=== PATIENT | male | born 1955 | race Caucasian/White ===

== ENCOUNTER 2017-09-20 07:06 | Day surgery (SDC) | payer OTHER, SELFPAY ==
[2017-09-19 11:46] VITALS: BMI 25.4
[2017-09-20] MEDS ORDERED: Midazolam HCl 2 mg/2 ml Vial ONE (08:13)
[2017-09-20] MEDS ORDERED: PROPOFOL 60 ML ONE (08:13)
[2017-09-20] MEDS ORDERED: Fentanyl 100 MCG/2 ML VIAL ONE (08:13)
[2017-09-20 08:14] LABS: Estimated GFR-MDRD - POC Greater than 90
--- NOTE | 2017-09-20 08:48 | CT ---
CT OF NECK SOFT TISSUES WITH CONTRAST: CLINICAL HISTORY: Mass of epiglottis. COMPARISON: No prior comparison. FINDINGS: Imaged intracranial contents are free from mass effect. The salivary glands and thyroid gland are gr ossly unremarkable. There is a verrucous-shaped mass centered about the oropharynx and hypopharynx w hich does involve the epiglottis as well as the region of the lingual tonsil. There is mild asymmetr ic prominence and medial deviation of the right vocal cord with slight effacement of the glottic airw ay. There are scattered borderline-sized bilateral cervical chain lymph nodes as well as enlargement of lymph nodes within the bilateral IIA zones, measuring 1l5 cm in diameter on the right and 1.5 cm on the left. Incidental note of emphysema of the imaged upper pulmonary parenchyma. There is osseous degenerative change. There are nonspecific mildly prominent mediastinal lymph nodes. IMPRESSION: Ill-defined, irregularly shaped mass centered about the oropharynx/hypopharynx which does involve the epiglottis as well as the lingual tonsillar region. This is indicative of malignancy. Associated e nlargement of lymph nodes of the neck as well as prominent lymph nodes of the partially imaged chest noted. Metastatic adenopathy is not excluded. Consider PET CT for further assessment. POS: SHERRY
[2017-09-20] MEDS ORDERED: EPINEPHrine 1 MG/ML AMP ONE (10:15)
[2017-09-20] MEDS ORDERED: Iopamidol 370 76% 100 ML VIAL ONE (13:06)
--- NOTE | 2017-09-20 13:10 | OP ---
PREOPERATIVE DIAGNOSIS: Epiglottic lesion. 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 PROCEDURE PERFORMED: Microsuspension laryngoscopy with biopsy and rigid esophagoscopy. FINDINGS: The patient had extensive erosion of the mid portion of the epiglottis extending all the w ay down to the false cord and the esophagus inlet and proximal esophagus was clear, and the vocal cor ds appeared uninvolved. Photographs were obtained. PROCEDURE IN DETAIL: After consent was obtained, the patient was identified, brought to the operatin g room and placed on the operative table in supine position. General endotracheal anesthesia was obt ained with a small endotracheal tube and the patient was positioned for suspension laryngoscopy. Lar yngoscope was placed in the oral cavity, oropharynx, hypopharynx and larynx were systematically evalu ated. There was extensive involvement of the epiglottis with erosion of the mid portion of the entir e epiglottis with extension of the preepiglottic space. The larynx itself appeared at the level of t he true cords, false cords appeared normal, and esophageal inlet and proximal esophagus was normal __ ___ rigid esophagoscopy. The rigid esophagoscope was removed. Bleeding points from the biopsy sites were cauterized with the electrocautery and the patient was ultimately awakened, extubated, and take n to recovery room in stable condition .
== END 2017-09-20 13:00 | disposition home or self-care (01) ==
LOC: SDC 07:06
PROVIDERS: ATTEND Specialist
PROC: 0CBR8ZX Excision of Epiglottis, Via Natural or Artificial Opening Endoscopic, Diagnostic (ICD-10-PCS; principal; 2017-09-20)
DX: C32.1 Malignant neoplasm of supraglottis (principal); F17.210 Nicotine dependence, cigarettes, uncomplicated; Z79.84 Long term (current) use of oral hypoglycemic drugs; Z79.899 Other long term (current) drug therapy; Z88.5 Allergy status to narcotic agent; H92.02 Otalgia, left ear
CPT/HCPCS: 70491; 82565; 88305; 93005; 93010; J0171; J2250; J2704; J3010